=== PATIENT | female | born 1980 | race Caucasian/White ===

== ENCOUNTER 2025-01-25 12:31 | Inpatient (IN) | payer OTHER ==
[~2025-01-25] VITALS: Ht 170.2 cm; Wt 138.0 kg
[2025-01-25 14:01] LABS: BASOPHILS # (AUTO) 0.1 K/uL (0.0-0.2); BASOPHILS % (AUTO) 0.7 % (0.0-2.0); EOSINOPHILS # (AUTO) 0.3 K/uL (0.0-0.7); EOSINOPHILS % (AUTO) 3.2 % (0.0-6.0); HEMATOCRIT 25 % (33-45); HEMOGLOBIN 7.6 g/dL (11.5-14.8); LYMPHOCYTES # (AUTO) 2.7 K/uL (0.8-4.8); LYMPHOCYTES % (AUTO) 24.1 % (20.0-44.0); MEAN CORPUSCULAR HEMOGLOBIN 20 PG (26.0-33.0); MEAN CORPUSCULAR HGB CONC 31 g/dl (31.0-36.0); MEAN CORPUSCULAR VOLUME 65 fL (82-100); MONOCYTES % (AUTO) 9.1 % (2.0-12.0); NEUTROPHILS # (AUTO) 6.9 K/uL (1.8-8.9); NEUTROPHILS % (AUTO) 62.9 % (43.0-81.0); PLATELET COUNT (AUTO) 342 K/uL (150-450); RED BLOOD CELL COUNT(AUTO) 3.78 MIL/uL (4.0-5.2); RED CELL DISTRIBUTION WIDTH 23.1 % (11.5-15.0)
[2025-01-25 14:09] LABS: CALCIUM, SERUM 8.5 mg/dL (8.5-10.1); CARBON DIOXIDE 30 mmol/L (21-32); CHLORIDE 107 mmol/L (98-107); CREATININE 0.9 mg/dL (0.6-1.3); GLUCOSE 86 mg/dL (74-106); POTASSIUM 4.5 mmol/L (3.5-5.1); SODIUM SERUM 140 mmol/L (136-145); UREA NITROGEN, BLOOD 16 mg/dL (7-18)
[2025-01-25] MEDS ORDERED: predniSONE 20 MG TABLET ONE (14:13)
[2025-01-25] MEDS: predniSONE 50 MG TABLET PO ONE (14:17)
[2025-01-25] MEDS ORDERED: IPRATROPIUM NEB FS 0.5 MG/2.5 ML AMPUL.NEB ONE (14:22)
[2025-01-25] MEDS ORDERED: ALBUTEROL FS 2.5 MG/3 ML VIAL.NEB ONE (14:22)
[2025-01-25 14:26] LABS: NT-PRO BNP 683 pg/mL (0-125)
[2025-01-25] MEDS: ALBUTEROL FS 2.5 MG/0.5 ML VIAL.NEB NEB ONE (14:30)
[2025-01-25] MEDS: IPRATROPIUM NEB FS 0.5 MG/2.5 ML AMPUL.NEB NEB ONE (14:30)
[2025-01-25 14:31] VITALS: O2SAT 97
[2025-01-25 14:44] VITALS: O2SAT 100
[2025-01-25] MEDS ORDERED: AMOX/CLAVULANATE 875 MG TABLET ONE (15:02)
[2025-01-25] MEDS: AMOX/CLAVULANATE 875 MG TABLET PO ONE (15:06)
[2025-01-25] MEDS ORDERED: ATEN50TA PO (15:49)
[2025-01-25] MEDS ORDERED: PROP10TA68 PO (15:49)
[2025-01-25] MEDS ORDERED: BUSP30TA2 PO (15:49)
[2025-01-25] MEDS ORDERED: OMEP40CA21 PO (15:49)
[2025-01-25] MEDS ORDERED: SERT100T12 PO (15:49)
[2025-01-25] MEDS ORDERED: GABA300C PO (15:49)
[2025-01-25] MEDS ORDERED: PRAZ2CAP2 PO (15:49)
[2025-01-25] MEDS ORDERED: CLON0.1T PO (15:49)
[2025-01-25] MEDS ORDERED: ONDANSETRON HCL/PF 4 MG/2 ML VIAL IVP PRN (16:00)
[2025-01-25] MEDS ORDERED: methylPREDNISolone DOSPAK(4MG) 1 PACK TAB.DS.PK PO ONE (16:00)
[2025-01-25] MEDS ORDERED: Z GUARD REMEDY 4 OZ OINT TP PRN (16:00)
[2025-01-25] MEDS ORDERED: IPRATROPIUM NEB FS 0.5 MG/2.5 ML AMPUL.NEB NEB PRN (16:00)
[2025-01-25] MEDS ORDERED: ALBUTEROL FS 2.5 MG/3 ML VIAL.NEB NEB PRN (16:00)
[2025-01-25] MEDS ORDERED: MAGNESIUM HYDROXIDE 30 ML UDC PO PRN (16:00)
[2025-01-25] MEDS ORDERED: MAG HYDROX/AL HYDROX/SIMETH 30 ML UDC PO PRN (16:00)
[2025-01-25] MEDS ORDERED: CLONIDINE HCL 0.1 MG TABLET PO PRN (16:30)
[2025-01-25] MEDS ORDERED: GABAPENTIN 300 MG CAPSULE PO PRN (16:30)
[2025-01-25] MEDS ORDERED: PROPRANOLOL HCL 10 MG TABLET PO PRN (16:30)
[2025-01-25] MEDS ORDERED: AMOX/CLAVULANATE 875 MG TABLET PO SCH (17:00)
[2025-01-25] MEDS ORDERED: busPIRone 5 MG TABLET PO SCH (17:00)
[2025-01-25 17:08] LABS: IRON, SERUM 18 ug/dl (50-175); TOTAL IRON BINDING CAPACITY 434 ug/dl (250-450)
[2025-01-25] MEDS ORDERED: methylPREDNISolone (4MG) 4 MG TABLET (DAY #1, BEFORE DINNER) PO ONE (17:30)
[2025-01-25] MEDS ORDERED: hydrOXYzine HCL SYRUP 10 MG/5 ML UDC PO PRN (18:00)
[2025-01-25 18:29] VITALS: O2SAT 95
[2025-01-25] MEDS ORDERED: methylPREDNISolone (4MG) 4 MG TABLET (DAY #1) PO ONE (18:30)
[2025-01-25 20:00] VITALS: BP 140/90; TEMP 98.1; O2SAT 96
[2025-01-25] MEDS: AMOX/CLAVULANATE 875 MG TABLET PO SCH (20:42)
[2025-01-25] MEDS: busPIRone 5 MG TABLET PO SCH (20:42)
[2025-01-25] MEDS ORDERED: methylPREDNISolone (4MG) 4 MG TABLET ONE (22:56)
[2025-01-25] MEDS: methylPREDNISolone (4MG) 4 MG TABLET (DAY #1, HS) PO ONE (23:45)
[2025-01-25] MEDS: LORAZEPAM 1 MG TABLET PO PRN (23:45)
[2025-01-26] VITALS: BP 135/78; TEMP 98; O2SAT 98
[2025-01-26 04:58] VITALS: BP 156/92; TEMP 97.5; O2SAT 98
[2025-01-26 06:39] LABS: CALCIUM, SERUM 8.7 mg/dL (8.5-10.1); CREATININE 0.9 mg/dL (0.6-1.3); MAGNESIUM 2.5 mg/dL (1.8-2.4); POTASSIUM 4.5 mmol/L (3.5-5.1)
[2025-01-26 06:43] LABS: BASOPHILS # (AUTO) 0.1 K/uL (0.0-0.2); BASOPHILS % (AUTO) 0.5 % (0.0-2.0); EOSINOPHILS % (AUTO) 0.1 % (0.0-6.0); HEMATOCRIT 27 % (33-45); HEMOGLOBIN 8.1 g/dL (11.5-14.8); LYMPHOCYTES # (AUTO) 1.7 K/uL (0.8-4.8); MEAN CORPUSCULAR HEMOGLOBIN 20 PG (26.0-33.0); MEAN CORPUSCULAR HGB CONC 30 g/dl (31.0-36.0); MEAN CORPUSCULAR VOLUME 65 fL (82-100); MONOCYTES # (AUTO) 0.6 K/uL (0.1-1.30); MONOCYTES % (AUTO) 4.3 % (2.0-12.0); NEUTROPHILS % (AUTO) 83.1 % (43.0-81.0); PLATELET COUNT (AUTO) 365 K/uL (150-450); RED BLOOD CELL COUNT(AUTO) 4.16 MIL/uL (4.0-5.2); RED CELL DISTRIBUTION WIDTH 23.2 % (11.5-15.0); WHITE BLOOD COUNT (AUTO) 14.4 K/uL (4.3-11.0)
[2025-01-26 06:59] LABS: THYROID STIMULATING HORMONE 1.05 uIU/mL (0.358-3.74)
[2025-01-26 07:30] VITALS: BP 152/87; TEMP 97.7; O2SAT 95
[2025-01-26] MEDS: PANTOPRAZOLE 40 MG TABLET.DR PO SCH (07:39)
[2025-01-26] MEDS: methylPREDNISolone (4MG) 4 MG TABLET (DAY#2 ACB) PO ONE (07:40)
[2025-01-26] MEDS ORDERED: ATENOLOL 50 MG TABLET PO SCH (09:00)
[2025-01-26] MEDS: SERTRALINE HCL 50 MG TABLET PO SCH (09:11)
[2025-01-26] MEDS: VALSARTAN 80 MG TABLET PO SCH (09:14)
[2025-01-26] MEDS: THIAMINE HCL 100 MG TABLET PO SCH (09:17)
[2025-01-26] MEDS: methylPREDNISolone (4MG) 4 MG TABLET (DAY#2,PC LUNCH) PO ONE (11:46)
[2025-01-26 13:57] LABS: PREGNANCY TEST URINE QUAL NEGATIVE (NEGATIVE)
[2025-01-26] MEDS: SOD FERRIC GLUC 125 MG in IV NS 0.9% 100 ML IV SCH (14:50)
[2025-01-26 16:31] VITALS: BP 124/87; TEMP 98.2; O2SAT 97
[2025-01-26] MEDS: methylPREDNISolone (4MG) 4 MG TABLET (DAY#2, PC DINNER) PO ONE (17:14)
[2025-01-26] MEDS: ACETAMINOPHEN 325 MG TABLET PO PRN (18:44)
[2025-01-26 20:00] VITALS: BP 145/86; TEMP 97.7; O2SAT 97
[2025-01-26] MEDS: methylPREDNISolone (4MG) 4 MG TABLET (DAY#2, HS) PO ONE (21:00)
[2025-01-27 07:30] VITALS: BP 135/96; TEMP 97.9; O2SAT 96
[2025-01-27] MEDS: methylPREDNISolone (4MG) 4 MG TABLET (DAY#3,ACB) PO ONE (07:45)
[2025-01-27 08:20] VITALS: BP 135/96
[2025-01-27] MEDS ORDERED: ALBU8.5H8 INH (08:25)
[2025-01-27] MEDS ORDERED: AMOX-430 PO (08:25)
[2025-01-27] MEDS ORDERED: METH4TAB17 PO (08:25)
[2025-01-27] MEDS: methylPREDNISolone (4MG) 4 MG TABLET (DAY#3,PC LUNCH) PO ONE (12:17)
[2025-01-27] MEDS ORDERED: methylPREDNISolone (4MG) 4 MG TABLET (DAY#3,PC DINNER) PO ONE (17:30)
[2025-01-27] MEDS ORDERED: methylPREDNISolone (4MG) 4 MG TABLET (DAY#3, HS) PO ONE (22:00)
[2025-01-28] MEDS ORDERED: methylPREDNISolone (4MG) 4 MG TABLET (DAY #4, ACB) PO ONE (07:30)
[2025-01-28] MEDS ORDERED: methylPREDNISolone (4MG) 4 MG TABLET (DAY #4, PC LUNCH) PO ONE (12:30)
[2025-01-28] MEDS ORDERED: methylPREDNISolone (4MG) 4 MG TABLET (DAY#4 HS) PO ONE (22:00)
[2025-01-29] MEDS ORDERED: methylPREDNISolone (4MG) 4 MG TABLET (DAY#5, ACB) PO ONE (07:30)
[2025-01-29] MEDS ORDERED: methylPREDNISolone (4MG) 4 MG TABLET (DAY#5,HS) PO ONE (22:00)
[2025-01-30] MEDS ORDERED: methylPREDNISolone (4MG) 4 MG TABLET (DAY#6,ACB) PO ONE (07:30)
== END 2025-01-27 12:45 | DRG 291 ==
LOC: ER 12:31 → MED 18:07 → TELE 20:04 → MED 01-26 23:57
PROVIDERS: ADMIT Nurse Practitioner Acute Care; ATTEND Nurse Practitioner Acute Care
DX: I11.0 Hypertensive heart disease with heart failure (principal); I50.33 Acute on chronic diastolic (congestive) heart failure; J45.901 Unspecified asthma with (acute) exacerbation; Z68.42 Body mass index [BMI] 45.0-49.9, adult; K21.9 Gastro-esophageal reflux disease without esophagitis; E66.01 Morbid (severe) obesity due to excess calories; F19.11 Other psychoactive substance abuse, in remission; F10.11 Alcohol abuse, in remission; F17.290 Nicotine dependence, other tobacco product, uncomplicated; F32.A Depression, unspecified; F29 Unspecified psychosis not due to a substance or known physiological condition; K02.9 Dental caries, unspecified; G47.33 Obstructive sleep apnea (adult) (pediatric); F39 Unspecified mood [affective] disorder; K05.10 Chronic gingivitis, plaque induced; Z71.6 Tobacco abuse counseling; Z88.1 Allergy status to other antibiotic agents; Z86.718 Personal history of other venous thrombosis and embolism
CPT/HCPCS: 36415; 71045-TC; 80048-TC; 80061-TC; 83540-TC; 83735-TC; 83880; 84100-TC; 84443-TC; 84484-TC; 84703-TC; 85025-TC; 87081-TC; 93307-TC; A4223; G0378; J2916; J7030; J7040; J7509